=== PATIENT | female | born 1955 | race African-American/Black ===

== ENCOUNTER 2022-09-10 15:12 | Inpatient (IN) | payer MEDICARE, BC ==
[~2022-09-10] VITALS: Ht 172.7 cm; Wt 138.8 kg
[~2022-09-10 15:12] MED LIST: ASPI-1073 PO; ATOR80TA PO; CARV25TA47 PO; CLOP-31 PO; COLC0.6T66 PO; DIGO0.12 PO; ERGO500013 PO; FURO80TA87 PO; INSLAN SQ; INSU100V3 IJ; METO2.5T2 PO; POTA-189 PO
[2022-09-10] MEDS ORDERED: ONDANSETRON HCL 4MG/2ML INJ IV ONE (16:15)
[2022-09-10] MEDS ORDERED: SODIUM CHLORIDE 0.9% 1,000 ML IV ONE (16:15)
[2022-09-10 16:18] LABS: HEMATOCRIT. 37.7 % (36.0-48.0); HEMOGLOBIN. 12.6 g/dL (12.0-16.0); MEAN CORPUSCULAR HEMOGLOBIN 30.3 pg (28.0-32.0); MEAN CORPUSCULAR VOLUME 90.6 fL (81.0-99.0); MEAN PLATELET VOLUME 8.2 fl (7.4-10.4); PLATELET 181 x1000/uL (130-400); RED BLOOD CELL COUNT 4.17 mill/uL (4.2-5.4); RED CELL DISTRIBUTION WIDTH 15.3 % (11.6-14.6)
[2022-09-10 16:25] LABS: CHLORIDE 109 mEq/L (98-107)
[2022-09-10 16:30] LABS: PROTHROMBIN TIME 11.2 sec (9.6-11.0)
[2022-09-10 16:35] LABS: PLATELET ESTIMATE NORMAL
[2022-09-10] MEDS ORDERED: FUROSEMIDE 40MG/4ML VIAL IVP ONE (16:45)
[2022-09-10] MEDS ORDERED: ACETAMINOPHEN 650MG SUPP PR PRN (23:30)
[2022-09-10] MEDS ORDERED: ONDANSETRON HCL 4MG/2ML INJ IV PRN (23:30)
[2022-09-10] MEDS ORDERED: ACETAMINOPHEN 325MG TABLET PO PRN ×2 (23:30)
[2022-09-10] MEDS ORDERED: IPRATROPIUM/ALBUTEROL 0.5-3(2.5)MG/3ML NEB HHN PRN (23:30)
[2022-09-10] MEDS ORDERED: DEXTROSE 50% WATER 50ML SYRINGE IV PRN (23:30)
[2022-09-10] MEDS ORDERED: GUAIFENESIN 200MG/10ML SUGAR FREE UDC PO PRN (23:30)
[2022-09-10] MEDS ORDERED: HYDROCODONE/ACETAMINOPHEN 5/325MG TABLET PO PRN (23:30)
[2022-09-10] MEDS ORDERED: CLONIDINE 0.1MG TABLET PO PRN (23:30)
[2022-09-10] MEDS ORDERED: DOCUSATE SODIUM 100MG CAPSULE PO PRN (23:30)
[2022-09-10] MEDS ORDERED: NALOXONE HCL 0.4MG/ML VIAL IV PRN (23:45)
[2022-09-11] MEDS ORDERED: LOSA100T32 PO (00:21)
[2022-09-11] MEDS ORDERED: ATOR-2 PO (00:21)
[2022-09-11] MEDS ORDERED: CARV12.545 PO (00:21)
[2022-09-11] MEDS ORDERED: AMLO10TA80 PO (00:21)
[2022-09-11] MEDS ORDERED: APIX5TAB PO (00:21)
[2022-09-11] MEDS: ATORVASTATIN CALCIUM 40MG TABLET PO SCH ×2 (00:30→20:38)
[2022-09-11 05:43] LABS: BASOPHILS % 0.2 % (0.0-2.0); EOSINOPHILS % 0.5 % (0.0-5.0); HEMOGLOBIN. 11.5 g/dL (12.0-16.0); MEAN CORPUSCULAR HEMOGLOBIN 30.3 pg (28.0-32.0); MEAN CORPUSCULAR VOLUME 89.7 fL (81.0-99.0); MEAN PLATELET VOLUME 8.3 fl (7.4-10.4); MONOCYTES % 7.8 % (2.0-8.0); NEUTROPHILS % 76.5 % (40.0-76.0); PLATELET 177 x1000/uL (130-400); RED BLOOD CELL COUNT 3.79 mill/uL (4.2-5.4); RED CELL DISTRIBUTION WIDTH 15.6 % (11.6-14.6)
[2022-09-11 05:45] LABS: CHLORIDE 113 mEq/L (98-107)
[2022-09-11 05:59] LABS: HDL CHOLESTEROL 77 mg/dL (40-59); LDL CHOLESTEROL 36 mg/dL (5-100); T4 FREE 1.08 ng/dL (0.76-1.46)
[2022-09-11] MEDS: INSULIN LISPRO 100 UNITS/ML SUBCUT SCH ×5 (07:00→20:40)
[2022-09-11] MEDS: BLOOD SUGAR DIAGNOSTIC STRIP TEST SCH ×5 (07:13→20:37)
[2022-09-11] MEDS ORDERED: ENOXAPARIN 30MG/0.3ML SYR SUBCUT SCH (09:00)
[2022-09-11 12:00] VITALS: BP 166/71
[2022-09-11] MEDS: ASPIRIN 81MG EC TABLET PO SCH (12:18)
[2022-09-11] MEDS: FUROSEMIDE 40MG/4ML VIAL IVP SCH (12:18)
[2022-09-11] MEDS: APIXABAN 5 MG TABLET PO SCH ×2 (12:18→16:47)
[2022-09-11] MEDS: CARVEDILOL 12.5MG TABLET PO SCH ×2 (12:19→16:46)
[2022-09-11] MEDS: LOSARTAN POTASSIUM 100 MG TABLET PO SCH (12:19)
[2022-09-11] MEDS: FAMOTIDINE 20MG/2ML VIAL IV SCH (12:19)
[2022-09-11] MEDS: AMLODIPINE 10MG TABLET PO SCH (12:20)
[2022-09-11] MEDS ORDERED: IPRATROPIUM BROMIDE (0.02%) 0.5MG/2.5ML NEB HHN PRN (12:30)
[2022-09-11] MEDS ORDERED: ALBUTEROL (0.083%) 2.5MG/3ML NEB HHN PRN (12:30)
[2022-09-11 16:00] VITALS: BP 137/56
[2022-09-11 20:00] VITALS: BP 147/64
[2022-09-11] MEDS ORDERED: ATORVASTATIN CALCIUM 40MG TABLET PO SCH (21:00)
[2022-09-11 22:42] LABS: HEPATITIS B SURFACE ANTIGEN NEGATIVE
[2022-09-12] VITALS: BP 142/69
[2022-09-12 04:00] VITALS: BP 133/65
[2022-09-12 06:23] LABS: HEMATOCRIT 34.5 % (36.0-48.0); HEMOGLOBIN 11.6 g/dL (12.0-16.0); MEAN CORPUSCULAR HEMOGLOBIN 30.1 pg (28.0-32.0); MEAN CORPUSCULAR VOLUME 89.5 fL (81.0-99.0); PLATELET 179 x1000/uL (130-400); RED BLOOD CELL COUNT 3.86 mill/uL (4.2-5.4); RED CELL DISTRIBUTION WIDTH 15.6 % (11.6-14.6)
[2022-09-12] MEDS: INSULIN LISPRO 100 UNITS/ML SUBCUT SCH ×4 (06:43→20:53)
[2022-09-12] MEDS: BLOOD SUGAR DIAGNOSTIC STRIP TEST SCH ×4 (06:43→20:49)
[2022-09-12 06:56] LABS: PHOSPHORUS 2.9 mg/dL (2.5-4.9)
[2022-09-12 08:00] VITALS: BP 141/65
[2022-09-12] MEDS: FUROSEMIDE 40MG/4ML VIAL IVP SCH (09:19)
[2022-09-12] MEDS: APIXABAN 5 MG TABLET PO SCH ×2 (09:19→17:37)
[2022-09-12] MEDS: ASPIRIN 81MG EC TABLET PO SCH (09:20)
[2022-09-12] MEDS: AMLODIPINE 10MG TABLET PO SCH (09:20)
[2022-09-12] MEDS: FAMOTIDINE 20MG/2ML VIAL IV SCH (09:20)
[2022-09-12] MEDS: CARVEDILOL 12.5MG TABLET PO SCH ×2 (09:20→17:37)
[2022-09-12] MEDS: LOSARTAN POTASSIUM 100 MG TABLET PO SCH (09:20)
[2022-09-12 12:00] VITALS: BP 135/72
[2022-09-12 16:00] VITALS: BP 136/78
[2022-09-12 20:00] VITALS: BP 140/72
[2022-09-12] MEDS: ATORVASTATIN CALCIUM 40MG TABLET PO SCH (20:52)
[2022-09-13] VITALS: BP 138/64
[2022-09-13 04:00] VITALS: BP 143/69
[2022-09-13 04:58] VITALS: BP 143/69
[2022-09-13] MEDS: BLOOD SUGAR DIAGNOSTIC STRIP TEST SCH (06:41)
[2022-09-13] MEDS ORDERED: FAMOTIDINE 20MG TABLET PO SCH (09:00)
== END 2022-09-13 07:50 | disposition home health service (06) | DRG 291 ==
LOC: ER 15:49 → MICUSO 18:32 → EDBEDREQ 18:40 → EDBEDREQTM 18:40 → 7WST 09-11 12:04
PROVIDERS: ADMIT Hospitalist; ATTEND Hospitalist
DX: I13.0 Hypertensive heart and chronic kidney disease with heart failure and stage 1 through stage 4 chronic kidney disease, or unspecified chronic kidney disease (principal); I50.43 Acute on chronic combined systolic (congestive) and diastolic (congestive) heart failure; E10.22 Type 1 diabetes mellitus with diabetic chronic kidney disease; N18.9 Chronic kidney disease, unspecified; Z20.822 Contact with and (suspected) exposure to COVID-19; E78.5 Hyperlipidemia, unspecified; I07.1 Rheumatic tricuspid insufficiency; T38.3X5A Adverse effect of insulin and oral hypoglycemic [antidiabetic] drugs, initial encounter; I27.20 Pulmonary hypertension, unspecified; Z96.659 Presence of unspecified artificial knee joint; Z23 Encounter for immunization; Z89.519 Acquired absence of unspecified leg below knee; Z99.3 Dependence on wheelchair; Z95.810 Presence of automatic (implantable) cardiac defibrillator; Z79.4 Long term (current) use of insulin; Z79.82 Long term (current) use of aspirin; Z88.8 Allergy status to other drugs, medicaments and biological substances; Y92.89 Other specified places as the place of occurrence of the external cause
CPT/HCPCS: 36415; 71045; 76770; 80048; 80053; 80061; 82962; 83036; 83735; 83880; 83930; 84100; 84439; 84443; 84481; 84484; 85025; 85027; 86803; 87340; 93005; 93306; 93970; 97161; 97166; 99291; J1815; J1940; J3490; J7030

== ENCOUNTER 2023-01-21 07:00 | Inpatient (IN) | payer MEDICARE, BC ==
[~2023-01-21] VITALS: Ht 121.9 cm; Wt 105.4 kg
[~2023-01-21 07:00] MED LIST changes: +AMLO10TA80 PO; +APIX5TAB PO; +ATOR-2 PO; +CARV12.545 PO; +LOSA100T33 PO
[2023-01-21 07:40] LABS: BASOPHILS % 0.2 % (0.0-2.0); EOSINOPHILS % 1.8 % (0.0-5.0); HEMATOCRIT. 34.6 % (36.0-48.0); HEMOGLOBIN. 11.7 g/dL (12.0-16.0); LYMPHOCYTES % 7.5 % (20.0-50.0); MEAN CORPUSCULAR HEMOGLOBIN 29.2 pg (28.0-32.0); MEAN CORPUSCULAR VOLUME 86.7 fL (81.0-99.0); MEAN PLATELET VOLUME 8.5 fl (7.4-10.4); MONOCYTES % 5.7 % (2.0-8.0); NEUTROPHILS % 84.8 % (40.0-76.0); PLATELET 193 x1000/uL (130-400); RED BLOOD CELL COUNT 3.99 mill/uL (4.2-5.4); RED CELL DISTRIBUTION WIDTH 16.5 % (11.6-14.6)
[2023-01-21 07:49] LABS: INR 1.1; PROTHROMBIN TIME 11.6 sec (9.6-11.0)
[2023-01-21 07:52] LABS: CHLORIDE 110 mEq/L (98-107)
[2023-01-21 11:20] LABS: CLARITY URINE TURBID (CLEAR); COLOR URINE YELLOW (YELLOW); KETONES URINE TRACE (NEGATIVE); LEUKOCYTE ESTERASE URINE 3+ (NEGATIVE); NITRITE URINE NEGATIVE (NEGATIVE); OCCULT BLOOD URINE 2+ (NEGATIVE); PH URINE 6.5 (4.5-8.0); PROTEIN URINE 3+ (NEGATIVE); SPECIFIC GRAVITY URINE 1.012 (1.005-1.030); UROBILINOGEN URINE 0.2 E.U./dL (0.2-1.0)
[2023-01-21] MEDS ORDERED: CEFTRIAXONE 1GM PREMIX 50 ML IV ONE (12:00)
[2023-01-21] MEDS ORDERED: CEFTRIAXONE 1GM PREMIX 50 ML IV SCH (13:30)
[2023-01-21] MEDS ORDERED: DOCUSATE SODIUM 100MG CAPSULE PO PRN (13:45)
[2023-01-21] MEDS ORDERED: CLONIDINE 0.1MG TABLET PO PRN (13:45)
[2023-01-21] MEDS ORDERED: IPRATROPIUM/ALBUTEROL 0.5-3(2.5)MG/3ML NEB NEB PRN (13:45)
[2023-01-21] MEDS ORDERED: NITROGLYCERIN 0.4MG TABLET SL SL PRN (13:45)
[2023-01-21] MEDS ORDERED: MAGNESIUM/ALUMINUM HYDROXIDE/SIMETHICONE 30ML UDC PO PRN (13:45)
[2023-01-21] MEDS ORDERED: ACETAMINOPHEN 325MG TABLET PO PRN ×2 (13:45)
[2023-01-21] MEDS ORDERED: KETOROLAC 15MG/ML VIAL IV PRN ×2 (13:45→14:00)
[2023-01-21] MEDS ORDERED: DEXTROSE 50% WATER 50ML SYRINGE IV PRN (13:45)
[2023-01-21] MEDS ORDERED: ENOXAPARIN 40MG/0.4ML SYR SUBCUT SCH (14:00)
[2023-01-21] MEDS: MEROPENEM 1,000 MG in SODIUM CHLORIDE 0.9% 100 ML IV SCH ×2 (14:00→22:00)
[2023-01-21] MEDS: SODIUM CHLORIDE 0.9% 1,000 ML IV SCH (14:30)
[2023-01-21] MEDS ORDERED: VANCOMYCIN 1.5GM/250ML IVPB 250 ML IV SCH (15:00)
[2023-01-21 15:12] LABS: VITAMIN B12 SERUM 1706 pg/mL (211-911)
[2023-01-21 15:43] LABS: FOLIC ACID (FOLATE) SERUM > 20.00 ng/mL (>5.38)
[2023-01-21 15:49] LABS: T4 FREE 1.25 ng/dL (0.76-1.46)
[2023-01-21 16:33] LABS: DIGOXIN 0.1 ng/mL (0.9-2.0)
[2023-01-21] MEDS: BLOOD SUGAR DIAGNOSTIC STRIP TEST SCH ×2 (17:00→21:00)
[2023-01-21] MEDS: INSULIN LISPRO 100 UNITS/ML SUBCUT SCH ×3 (17:50→21:00)
[2023-01-21] MEDS: CARVEDILOL 3.125 MG TABLET PO SCH (18:00)
[2023-01-21] MEDS: ONDANSETRON HCL 4MG/2ML INJ IV PRN (20:02)
[2023-01-21] MEDS: ATORVASTATIN CALCIUM 40MG TABLET PO SCH (21:00)
[2023-01-21] MEDS ORDERED: ZOLPIDEM TARTRATE 5MG TABLET PO PRN (21:00)
[2023-01-21] MEDS: FAMOTIDINE 20MG TABLET PO SCH (21:00)
[2023-01-21] MEDS: ASCORBIC ACID 500 MG TABLET PO SCH (21:00)
[2023-01-21] MEDS: INSULIN GLARGINE 100 UNITS/ML SUBCUT SCH (22:00)
[2023-01-22] VITALS (9 sets, daily range): BP systolic 124–147; BP diastolic 49–103
[2023-01-22 02:03] LABS: CREATINE KINASE MB FRACTION 1.4 ng/mL (0.5-3.6)
[2023-01-22] MEDS: SODIUM CHLORIDE 0.9% 1,000 ML IV SCH ×2 (03:05→17:10)
[2023-01-22] MEDS: APIXABAN 2.5 MG TABLET PO SCH ×2 (05:18→17:42)
[2023-01-22] MEDS: CARVEDILOL 3.125 MG TABLET PO SCH ×2 (05:18→17:43)
[2023-01-22] MEDS ORDERED: MEROPENEM 1,000 MG in SODIUM CHLORIDE 0.9% 100 ML IV SCH (06:00)
[2023-01-22] MEDS ORDERED: VANCOMYCIN 750MG PREMIX 150 ML IV SCH (06:00)
[2023-01-22] MEDS: BLOOD SUGAR DIAGNOSTIC STRIP TEST SCH ×4 (06:36→21:53)
[2023-01-22] MEDS: INSULIN LISPRO 100 UNITS/ML SUBCUT SCH ×7 (06:43→22:13)
[2023-01-22 06:50] LABS: BASOPHILS % 0.2 % (0.0-2.0); EOSINOPHILS % 1.5 % (0.0-5.0); HEMATOCRIT. 31.2 % (36.0-48.0); HEMOGLOBIN. 10.5 g/dL (12.0-16.0); LYMPHOCYTES % 12.9 % (20.0-50.0); MEAN CORPUSCULAR HEMOGLOBIN 29.4 pg (28.0-32.0); MEAN CORPUSCULAR VOLUME 87.4 fL (81.0-99.0); MEAN PLATELET VOLUME 8.5 fl (7.4-10.4); MONOCYTES % 8.5 % (2.0-8.0); NEUTROPHILS % 76.9 % (40.0-76.0); PLATELET 186 x1000/uL (130-400); RED BLOOD CELL COUNT 3.57 mill/uL (4.2-5.4)
[2023-01-22 07:08] LABS: CHLORIDE 114 mEq/L (98-107)
[2023-01-22 07:15] LABS: PHOSPHORUS 3.4 mg/dL (2.5-4.9)
[2023-01-22] MEDS: ASCORBIC ACID 500 MG TABLET PO SCH ×2 (09:50→21:52)
[2023-01-22] MEDS: ASPIRIN 325MG EC TABLET PO SCH (09:50)
[2023-01-22] MEDS: ZINC SULFATE 220 MG ( 50 ) CAPSULE PO SCH (09:55)
[2023-01-22 10:07] LABS: *AMPHETAMINES SCREEN URINE NEGATIVE (NEGATIVE); *BARBITURATES SCREEN URINE NEGATIVE (NEGATIVE); *BENZODIAZEPINES SCREEN URINE NEGATIVE (NEGATIVE); *COCAINE SCREEN URINE NEGATIVE (NEGATIVE); CANNABINOID URINE SCREEN NEGATIVE (NEGATIVE); METHADONE URINE SCREEN NEGATIVE (NEGATIVE); OPIATES URINE SCREEN NEGATIVE (NEGATIVE); PHENCYCLIDINE URINE SCREEN NEGATIVE (NEGATIVE)
[2023-01-22] MEDS: ATORVASTATIN CALCIUM 40MG TABLET PO SCH (21:52)
[2023-01-22] MEDS: FAMOTIDINE 20MG TABLET PO SCH (21:53)
[2023-01-22] MEDS: GUAIFENESIN 200MG/10ML SUGAR FREE UDC PO PRN (21:54)
[2023-01-22] MEDS: MEROPENEM 1,000 MG in SODIUM CHLORIDE 0.9% 100 ML IV SCH (21:54)
[2023-01-22] MEDS: INSULIN GLARGINE 100 UNITS/ML SUBCUT SCH (22:14)
[2023-01-22] MEDS: ONDANSETRON HCL 4MG/2ML INJ IV PRN (22:16)
[2023-01-23] VITALS: BP 124/68
[2023-01-23] MEDS ORDERED: VANCOMYCIN 750MG PREMIX 150 ML IV SCH
[2023-01-23 04:00] VITALS: BP 139/77
[2023-01-23] MEDS: APIXABAN 2.5 MG TABLET PO SCH ×2 (06:33→18:39)
[2023-01-23] MEDS: CARVEDILOL 3.125 MG TABLET PO SCH ×2 (06:35→18:39)
[2023-01-23] MEDS: SODIUM CHLORIDE 0.9% 1,000 ML IV SCH (06:35)
[2023-01-23] MEDS: BLOOD SUGAR DIAGNOSTIC STRIP TEST SCH ×4 (06:36→21:57)
[2023-01-23] MEDS: INSULIN LISPRO 100 UNITS/ML SUBCUT SCH ×7 (07:10→21:59)
[2023-01-23 08:00] VITALS: BP 130/71
[2023-01-23] MEDS: ASCORBIC ACID 500 MG TABLET PO SCH ×2 (09:05→21:57)
[2023-01-23] MEDS: ASPIRIN 325MG EC TABLET PO SCH (09:05)
[2023-01-23] MEDS: ZINC SULFATE 220 MG ( 50 ) CAPSULE PO SCH (09:05)
[2023-01-23] MEDS: MEROPENEM 1,000 MG in SODIUM CHLORIDE 0.9% 100 ML IV SCH (10:28)
[2023-01-23 12:00] VITALS: BP 133/59
[2023-01-23 16:00] VITALS: BP 146/77
[2023-01-23 20:00] VITALS: BP 156/84
[2023-01-23] MEDS ORDERED: CEFTRIAXONE 1,000 MG in DEXTROSE 5% WATER 50 ML IV SCH (21:00)
[2023-01-23] MEDS: FAMOTIDINE 20MG TABLET PO SCH (21:57)
[2023-01-23] MEDS: ATORVASTATIN CALCIUM 40MG TABLET PO SCH (21:57)
[2023-01-23] MEDS: INSULIN GLARGINE 100 UNITS/ML SUBCUT SCH (21:58)
[2023-01-23] MEDS: GUAIFENESIN 200MG/10ML SUGAR FREE UDC PO PRN (22:10)
[2023-01-23] MEDS: ONDANSETRON HCL 4MG/2ML INJ IV PRN (23:53)
[2023-01-24] VITALS: BP 153/80
[2023-01-24 04:00] VITALS: BP 139/84
[2023-01-24] MEDS: APIXABAN 2.5 MG TABLET PO SCH (06:36)
[2023-01-24] MEDS: GUAIFENESIN 200MG/10ML SUGAR FREE UDC PO PRN (06:36)
[2023-01-24] MEDS: CARVEDILOL 3.125 MG TABLET PO SCH (06:38)
[2023-01-24] MEDS: BLOOD SUGAR DIAGNOSTIC STRIP TEST SCH ×2 (06:38→11:42)
[2023-01-24] MEDS: INSULIN LISPRO 100 UNITS/ML SUBCUT SCH ×6 (06:42→11:53)
[2023-01-24 08:00] VITALS: BP 143/76
[2023-01-24] MEDS: ASCORBIC ACID 500 MG TABLET PO SCH (08:22)
[2023-01-24] MEDS: ZINC SULFATE 220 MG ( 50 ) CAPSULE PO SCH (08:22)
[2023-01-24] MEDS: ASPIRIN 325MG EC TABLET PO SCH (08:22)
[2023-01-24] MEDS ORDERED: CEPH500T MT (08:25)
[2023-01-24] MEDS ORDERED: FUROSEMIDE 40MG TABLET PO SCH (10:00)
[2023-01-24 10:27] VITALS: BP 20/143
== END 2023-01-24 15:23 | disposition home or self-care (01) | DRG 871 ==
LOC: ER 07:48 → EDBEDREQTM 13:11 → EDBEDREQ 13:11 → SUPCPDRO 13:35 → 3WST 14:24 → EDBEDREQSVC 14:30 → ENRESERV 22:12
PROVIDERS: ADMIT Internal Medicine; ATTEND Internal Medicine
DX: A41.9 Sepsis, unspecified organism (principal); N17.0 Acute kidney failure with tubular necrosis; N39.0 Urinary tract infection, site not specified; E44.1 Mild protein-calorie malnutrition; J84.9 Interstitial pulmonary disease, unspecified; Z68.45 Body mass index [BMI] 70 or greater, adult; E11.65 Type 2 diabetes mellitus with hyperglycemia; I10 Essential (primary) hypertension; E78.00 Pure hypercholesterolemia, unspecified; I25.10 Atherosclerotic heart disease of native coronary artery without angina pectoris
CPT/HCPCS: 36415; 71045; 80048; 80053; 80061; 80162; 80202; 80305; 81003; 82550; 82553; 82607; 82746; 82962; 83036; 83540; 83550; 83605; 83735; 84100; 84145; 84439; 84443; 84484; 85025; 87077; 87186; 93005; 93306; 93970; 99285; J0696; J1650; J1815; J2185; J2405; J3370; J7050; J7060

== ENCOUNTER 2023-01-26 06:18 | Inpatient (IN) | payer MEDICARE, BC ==
[~2023-01-26] VITALS: Ht 172.7 cm; Wt 99.8 kg
[~2023-01-26 06:18] MED LIST changes: -ATOR-2 PO; -CARV25TA47 PO; +CEPH500T MT; -COLC0.6T66 PO; -DIGO0.12 PO; -ERGO500013 PO; -METO2.5T2 PO
[2023-01-26] MEDS ORDERED: IPRATROPIUM BROMIDE (0.02%) 0.5MG/2.5ML NEB HHN STA (06:19)
[2023-01-26] MEDS ORDERED: ALBUTEROL (0.083%) 2.5MG/3ML NEB HHN STA (06:19)
[2023-01-26] MEDS ORDERED: METHYLPREDNISOLONE SOD SUCC 125 MG/2 ML VIAL IV STA (06:19)
[2023-01-26] MEDS ORDERED: MAGNESIUM 2 G PREMIX 50 ML IV STA (06:19)
[2023-01-26 07:27] LABS: CHLORIDE 107 mEq/L (98-107); HEMATOCRIT. 35.5 % (36.0-48.0); HEMOGLOBIN. 11.6 g/dL (12.0-16.0); MEAN CORPUSCULAR HEMOGLOBIN 28.4 pg (28.0-32.0); MEAN CORPUSCULAR VOLUME 86.9 fL (81.0-99.0); PLATELET 228 x1000/uL (130-400); RED BLOOD CELL COUNT 4.08 mill/uL (4.2-5.4); RED CELL DISTRIBUTION WIDTH 16.6 % (11.6-14.6)
[2023-01-26] MEDS ORDERED: FUROSEMIDE 40MG/4ML VIAL IVP ONE (07:30)
[2023-01-26] MEDS ORDERED: ENALAPRIL 2.5MG/2ML VIAL 2ML IV ONE (07:30)
[2023-01-26 08:13] LABS: PLATELET ESTIMATE NORMAL
[2023-01-26] MEDS ORDERED: FUROSEMIDE 40MG/4ML VIAL IVP NR (10:16)
[2023-01-26] MEDS ORDERED: TRAMADOL 50MG TABLET PO PRN (10:45)
[2023-01-26] MEDS ORDERED: ACETAMINOPHEN 325MG TABLET PO PRN (10:45)
[2023-01-26] MEDS ORDERED: NA PHOS,M-B/NA PHOS,DI-BA ENEMA 118ML PR PRN (10:45)
[2023-01-26] MEDS ORDERED: MAGNESIUM/ALUMINUM HYDROXIDE/SIMETHICONE 30ML UDC PO PRN (10:45)
[2023-01-26] MEDS ORDERED: HYDROCODONE/ACETAMINOPHEN 5/325MG TABLET PO PRN (10:45)
[2023-01-26] MEDS ORDERED: IPRATROPIUM/ALBUTEROL 0.5-3(2.5)MG/3ML NEB HHN PRN (10:45)
[2023-01-26] MEDS ORDERED: DOCUSATE SODIUM 100MG CAPSULE PO PRN (10:45)
[2023-01-26] MEDS ORDERED: ONDANSETRON HCL 4MG/2ML INJ IV PRN (10:45)
[2023-01-26] MEDS ORDERED: FUROSEMIDE 40MG/4ML VIAL IV SCH (10:45)
[2023-01-26] MEDS ORDERED: NALOXONE HCL 0.4MG/ML VIAL IV PRN (11:00)
[2023-01-26] MEDS ORDERED: FUROSEMIDE 40MG/4ML VIAL IV NR (11:15)
[2023-01-26] MEDS: APIXABAN 5 MG TABLET PO SCH ×2 (11:29→18:41)
[2023-01-26] MEDS: AMLODIPINE 5MG TABLET PO SCH (11:29)
[2023-01-26] MEDS ORDERED: DEXTROSE 50% WATER 50ML SYRINGE IV PRN (12:15)
[2023-01-26] MEDS ORDERED: PREG50CA PO (16:43)
[2023-01-26] MEDS ORDERED: XALAO EACHEYE (16:43)
[2023-01-26] MEDS ORDERED: DULA1.5P SQ (16:45)
[2023-01-26] MEDS ORDERED: BRIM5DRO6 EACHEYE (16:47)
[2023-01-26] MEDS ORDERED: LIRA0.6P2 SQ (16:49)
[2023-01-26] MEDS ORDERED: INSU100I28 SQ (16:50)
[2023-01-26] MEDS ORDERED: INSHUMSS SUBCUT (16:54)
[2023-01-26] MEDS ORDERED: MULT-647 PO (16:55)
[2023-01-26 17:13] VITALS: BP 178/85
[2023-01-26] MEDS: SPIRONOLACTONE 25MG TABLET PO SCH (17:23)
[2023-01-26] MEDS: FUROSEMIDE 40MG/4ML VIAL IVP SCH (17:24)
[2023-01-26 17:44] VITALS: BP 178/85
[2023-01-26 18:09] LABS: CREATINE KINASE 195 IU/L (26-192)
[2023-01-26] MEDS: BLOOD SUGAR DIAGNOSTIC STRIP TEST SCH ×2 (18:30→21:04)
[2023-01-26] MEDS: LOSARTAN POTASSIUM 100 MG TABLET PO SCH (18:42)
[2023-01-26 20:00] VITALS: BP 150/77
[2023-01-26] MEDS: CARVEDILOL 12.5MG TABLET PO SCH (21:03)
[2023-01-26] MEDS: INSULIN LISPRO (HIGH DOSE) 100 UNITS/ML SUBCUT SCH ×2 (21:03→21:05)
[2023-01-26] MEDS: ATORVASTATIN CALCIUM 40MG TABLET PO SCH (21:04)
[2023-01-27] VITALS (7 sets, daily range): BP systolic 126–147; BP diastolic 58–70
[2023-01-27 00:49] LABS: CREATINE KINASE 146 IU/L (26-192)
[2023-01-27 05:32] LABS: BASOPHILS % 0.5 % (0.0-2.0); EOSINOPHILS % 2.3 % (0.0-5.0); HEMATOCRIT. 30.2 % (36.0-48.0); HEMOGLOBIN. 10.1 g/dL (12.0-16.0); LYMPHOCYTES % 16.4 % (20.0-50.0); MEAN CORPUSCULAR HEMOGLOBIN 29.1 pg (28.0-32.0); MEAN CORPUSCULAR VOLUME 86.4 fL (81.0-99.0); MEAN PLATELET VOLUME 8.2 fl (7.4-10.4); MONOCYTES % 8.4 % (2.0-8.0); NEUTROPHILS % 72.4 % (40.0-76.0); PLATELET 209 x1000/uL (130-400); RED BLOOD CELL COUNT 3.49 mill/uL (4.2-5.4); RED CELL DISTRIBUTION WIDTH 16.8 % (11.6-14.6)
[2023-01-27] MEDS: FUROSEMIDE 40MG/4ML VIAL IVP SCH ×2 (05:41→18:40)
[2023-01-27] MEDS: BLOOD SUGAR DIAGNOSTIC STRIP TEST SCH ×4 (06:22→21:42)
[2023-01-27 07:44] LABS: CHLORIDE 111 mEq/L (98-107)
[2023-01-27 08:12] LABS: HDL CHOLESTEROL 39 mg/dL (40-59); LDL CHOLESTEROL 42 mg/dL (5-100)
[2023-01-27] MEDS ORDERED: FUROSEMIDE 40MG/4ML VIAL IV SCH (09:00)
[2023-01-27] MEDS ORDERED: SPIRONOLACTONE 25MG TABLET PO SCH (09:00)
[2023-01-27] MEDS ORDERED: LOSARTAN POTASSIUM 100 MG TABLET PO SCH (09:00)
[2023-01-27] MEDS ORDERED: CLOPIDOGREL 75MG TABLET PO SCH (09:00)
[2023-01-27] MEDS: POTASSIUM CHLORIDE 10MEQ TABLET SR PO SCH (09:03)
[2023-01-27] MEDS: SPIRONOLACTONE 25MG TABLET PO SCH (09:04)
[2023-01-27] MEDS: CARVEDILOL 12.5MG TABLET PO SCH ×2 (09:04→21:42)
[2023-01-27] MEDS: AMLODIPINE 5MG TABLET PO SCH (09:04)
[2023-01-27] MEDS: ASPIRIN 81MG EC TABLET PO SCH (09:04)
[2023-01-27] MEDS: APIXABAN 5 MG TABLET PO SCH ×2 (09:05→18:40)
[2023-01-27] MEDS: LOSARTAN POTASSIUM 100 MG TABLET PO SCH (09:05)
[2023-01-27] MEDS: INSULIN LISPRO (HIGH DOSE) 100 UNITS/ML SUBCUT SCH ×4 (09:22→21:48)
[2023-01-27] MEDS: INSULIN GLARGINE 100 UNITS/ML SUBCUT SCH (13:03)
[2023-01-27] MEDS: GUAIFENESIN 200MG/10ML SUGAR FREE UDC PO PRN ×2 (15:32→18:40)
[2023-01-27 18:23] LABS: BG BASE EXCESS 0.5 mmol/L (-2.0-2.0); BG CARBOXYHEMOGLOBIN 0.3 % (0.5-1.5); BG DEOXYHEMOGLOBIN 6.8 % (0.0-5.0); BG METHEMOGLOBIN 0.2 % (0.0-1.5); BG OXYGEN SATURATION 93.2 % (92.0-98.5); BG OXYHEMOGLOBIN 92.7 % (94.0-97.0); BG PCO2 39.9 mmHg (35.0-45.0); BG PH 7.415 (7.350-7.450); BG PO2 69.7 mmHg (75.0-100.0); BG SAMPLE SITE RIGHT BRACHIAL; BG TOTAL HEMOGLOBIN 11.7 g/dL (12.0-18.0); BG VENT MODE ROOM AIR
[2023-01-27] MEDS: ATORVASTATIN CALCIUM 40MG TABLET PO SCH (21:41)
[2023-01-28] VITALS: BP 98/62
[2023-01-28 01:00] VITALS: BP 144/66
[2023-01-28 04:00] VITALS: BP 131/53
[2023-01-28] MEDS: FUROSEMIDE 40MG/4ML VIAL IVP SCH (06:23)
[2023-01-28] MEDS: BLOOD SUGAR DIAGNOSTIC STRIP TEST SCH ×2 (06:23→12:43)
[2023-01-28 08:00] VITALS: BP 146/70
[2023-01-28] MEDS: INSULIN LISPRO (HIGH DOSE) 100 UNITS/ML SUBCUT SCH ×2 (08:10→12:54)
[2023-01-28] MEDS: POTASSIUM CHLORIDE 10MEQ TABLET SR PO SCH (08:37)
[2023-01-28] MEDS: SPIRONOLACTONE 25MG TABLET PO SCH (08:37)
[2023-01-28] MEDS: APIXABAN 5 MG TABLET PO SCH (08:38)
[2023-01-28] MEDS: CARVEDILOL 12.5MG TABLET PO SCH (08:38)
[2023-01-28] MEDS: LOSARTAN POTASSIUM 100 MG TABLET PO SCH (08:38)
[2023-01-28] MEDS: ASPIRIN 81MG EC TABLET PO SCH (08:38)
[2023-01-28] MEDS ORDERED: AMLODIPINE 10MG TABLET PO SCH (09:00)
[2023-01-28] MEDS: INSULIN GLARGINE 100 UNITS/ML SUBCUT SCH (10:09)
[2023-01-28 12:00] VITALS: BP 138/79
[2023-01-28 12:37] VITALS: BP 138/79
[2023-01-28] MEDS ORDERED: LOPERAMIDE HCL 2MG CAPSULE PO NR (12:45)
[2023-01-28] MEDS ORDERED: ALBU6.7H3 INH (14:52)
[2023-01-29] MEDS ORDERED: FUROSEMIDE 40MG TABLET PO SCH (09:00)
== END 2023-01-28 16:39 | disposition home or self-care (01) | DRG 291 ==
LOC: ER 06:18 → EDBEDREQ 08:22 → EDBEDREQTM 08:22 → 7WST 10:45
PROVIDERS: ADMIT Hospitalist; ATTEND Hospitalist
DX: I13.0 Hypertensive heart and chronic kidney disease with heart failure and stage 1 through stage 4 chronic kidney disease, or unspecified chronic kidney disease (principal); I50.43 Acute on chronic combined systolic (congestive) and diastolic (congestive) heart failure; J96.01 Acute respiratory failure with hypoxia; D68.59 Other primary thrombophilia; E44.1 Mild protein-calorie malnutrition; N17.9 Acute kidney failure, unspecified; M86.9 Osteomyelitis, unspecified; I16.0 Hypertensive urgency; E11.51 Type 2 diabetes mellitus with diabetic peripheral angiopathy without gangrene; E66.9 Obesity, unspecified; Z20.822 Contact with and (suspected) exposure to COVID-19; I25.10 Atherosclerotic heart disease of native coronary artery without angina pectoris; E78.00 Pure hypercholesterolemia, unspecified; T50.2X5A Adverse effect of carbonic-anhydrase inhibitors, benzothiadiazides and other diuretics, initial encounter; E11.65 Type 2 diabetes mellitus with hyperglycemia; E11.22 Type 2 diabetes mellitus with diabetic chronic kidney disease; I48.0 Paroxysmal atrial fibrillation; N18.9 Chronic kidney disease, unspecified; I27.20 Pulmonary hypertension, unspecified; Z89.511 Acquired absence of right leg below knee; Z89.512 Acquired absence of left leg below knee; Z95.810 Presence of automatic (implantable) cardiac defibrillator; Z91.199 Patient's noncompliance with other medical treatment and regimen due to unspecified reason; Z79.899 Other long term (current) drug therapy; Z68.33 Body mass index [BMI] 33.0-33.9, adult; Y92.89 Other specified places as the place of occurrence of the external cause
CPT/HCPCS: 36415; 36600; 71045; 80048; 80053; 80061; 82375; 82550; 82805; 82962; 83880; 84145; 84484; 85025; 87426; 93005; 97162; 99285; C9803; J1815; J1940; J3490